=== PATIENT | female | born 1950 | race Caucasian/White ===

== ENCOUNTER → 2018-08-09 08:54 | Outpatient (CLI) | payer MEDICARE, OTHER, SELFPAY ==
--- NOTE | 2018-08-09 08:56 | RAD_ITS ---
STUDY: X-RAY - LEFT HAND, ATTENTION THIRD FINGER REASON FOR EXAM: Female, 68 years old. Pain with cyst. TECHNIQUE: 3 view(s) of the finger were obtained. COMPARISON: None. FINDINGS: There is generalized osteopenia. Normal metacarpal head. Normal metacarpophalangeal joint. Normal proximal phalanx. There is moderate arthrosis of the PIP joint of the third digit. There is moderate to marked arthrosis of the DIP joint of the third digit with a focal soft tissue mass most compatible with a ganglion cyst. Normal proximal interphalangeal joint. Normal distal interphalangeal joint. RAD/Finger(s) Min 2 Views IMPRESSION: Osteopenia with osteoarthritic changes. Ganglion cyst at the third DIP Electronically Signed: Jasper Barcenas MD at 13:20 EST , Service support ,
== END ==
PROVIDERS: Family Provider Family Medicine; PCP Family Medicine; Referring Provider Orthopaedic Surgery; Visit Provider Orthopaedic Surgery
DX: M79.645 Pain in left finger(s) (principal)
CPT/HCPCS: 73140